=== PATIENT | female | born 1980 | race Caucasian/White ===

== ENCOUNTER 2018-09-23 11:57 | Emergency (ER) | payer MEDICAID, OTHER ==
[2018-09-23 12:21] VITALS: BP 117/87
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
[2018-09-23] MEDS ORDERED: Bacitracin Oint 1 GM U/D Packet TOP ONE (15:37)
== END 2018-09-23 15:51 | disposition home or self-care (01) ==
LOC: JP.ED 11:57
DX: S29.012A Strain of muscle and tendon of back wall of thorax, initial encounter (principal); S20.219A Contusion of unspecified front wall of thorax, initial encounter; S80.11XA Contusion of right lower leg, initial encounter; M19.90 Unspecified osteoarthritis, unspecified site; Z88.1 Allergy status to other antibiotic agents; Z88.0 Allergy status to penicillin; Z88.2 Allergy status to sulfonamides; Z96.22 Myringotomy tube(s) status; Z98.51 Tubal ligation status; Z90.710 Acquired absence of both cervix and uterus; V43.63XA Car passenger injured in collision with pick-up truck in traffic accident, initial encounter
CPT/HCPCS: 71046; 72070; 73590-RT; 99284-25

== ENCOUNTER 2024-01-30 14:49 | Emergency (ER) | payer MEDICAID ==
[2024-01-30 17:01] VITALS: BP 129/74; PULSE 93
== END 2024-01-30 18:58 | disposition home or self-care (01) ==
LOC: JP.ED 14:49
DX: J01.00 Acute maxillary sinusitis, unspecified (principal); H60.503 Unspecified acute noninfective otitis externa, bilateral; Z90.49 Acquired absence of other specified parts of digestive tract; Z79.899 Other long term (current) drug therapy
CPT/HCPCS: 99283; U0002